=== PATIENT | male | born 1965 | race Caucasian/White ===

== ENCOUNTER 2021-11-29 00:32 | Emergency (ER) | payer MEDICAID, OTHER ==
[~2021-11-29] VITALS: Ht 180.3 cm; Wt 118.0 kg
[~2021-11-29 00:32] MED LIST: OTC MEDS
[2021-11-29 00:55] VITALS: BP 178/98
[2021-11-29] MEDS ORDERED: ACETAMINOPHEN 325MG TABLET PO ONE (03:30)
[2021-11-29] MEDS ORDERED: IBUP-2029 MT (05:43)
[2021-11-29] MEDS ORDERED: KETOROLAC 60MG/2ML VIAL IM ONE (05:45)
== END 2021-11-29 06:30 | disposition home or self-care (01) ==
LOC: ER 00:32
DX: M25.562 Pain in left knee (principal)
CPT/HCPCS: 73564; 96372; 99283; J1885; L1830; Z7610